=== PATIENT | male | born 1960 | race Caucasian/White ===

== ENCOUNTER 2017-01-21 09:26 | Emergency (ER) | payer BC ==
[~2017-01-21] VITALS: Ht 165.1 cm; Wt 77.1 kg
[2017-01-21] MEDS ORDERED: HYDR-971 PO (09:58)
[2017-01-21] MEDS ORDERED: CYCL-331 PO (09:58)
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
[2017-01-21] MEDS ORDERED: MORPHINE SULFATE 10 MG/ML SYRINGE. IM ONE (10:30)
[2017-01-21 10:35] VITALS: BP 129/88
== END 2017-01-21 10:41 | disposition home or self-care (01) ==
LOC: ER 09:26
DX: S39.012A Strain of muscle, fascia and tendon of lower back, initial encounter (principal); X50.1XXA Overexertion from prolonged static or awkward postures, initial encounter; Y93.55 Activity, bike riding; Y99.8 Other external cause status; Y92.89 Other specified places as the place of occurrence of the external cause
CPT/HCPCS: 96372; 99283; J2270

== ENCOUNTER → 2018-07-24 | Outpatient (CLI) | payer BC ==
[~2018-07-24] MED LIST: CYCL-331 PO; HYDR-3165 PO
--- NOTE | 2018-07-24 17:42 | RAD ---
2 view study of the right elbow Clinical indications: Right elbow pain. FINDINGS: No joint effusion is seen. No acute fracture or dislocation or lytic process is evident. No significant arthritic change is evident. IMPRESSION: No significant osseous abnormality. Electronically signed by: Tad Naranjo MD (07/24/2018 5:39 PM) [id number]
== END | disposition home or self-care (01) ==
LOC: PMG 11:20
PROVIDERS: ATTEND Family Medicine
DX: M25.521 Pain in right elbow (principal)
CPT/HCPCS: 73070